=== PATIENT | female | born 2000 | race Caucasian/White ===

== ENCOUNTER → 2023-11-24 | Outpatient (CLI) | payer SELFPAY ==
[2023-11-24 15:11] LABS: Absolute Lymphocyte Count 2.09 X10^3/uL (0.83-4.51); Absolute Neutrophil Count 10.2 X10^3/uL (2.0-7.7); Basophil# 0.08 X10^3/uL; Basophil% 0.6 % (0-1); Eosinophil# 0.06 X10^3/uL; Eosinophils% 0.4 % (0-5); Hematocrit 42.5 % (37-47); Hemoglobin 13.8 g/dL (12.0-15.0); Lymphocyte # 2.09 X10^3/ul (0.83-4.51); Lymphocyte % 15.7 % (19-41); Mean Corp Hgb Conc 32.5 g/dL (32-36); Mean Corpuscular Hgb 28.5 pg (27.0-32.0); Mean Corpuscular Volume 87.6 fL (81-99); Mean Platelet Vol. 10.1 fl (6.2-12.0); Monocyte# 0.92 X10^3/uL; Monocyte% 6.9 % (0-10); NRBC Flagged by Analyzer 0 % (0-5); Neutrophil # 10.16 X10^3/uL (2.7-7.7); Neutrophil % 76.1 % (47-70); Platelet Count 311 K/mm3 (150-450); RBC Distribution Width CV 12.2 % (11.6-14.6); RBC Distribution Width SD 39.4 fl (35.1-43.9); Red Blood Count 4.85 M/mm3 (4.2-5.4); White Blood Count 13.4 K/mm3 (4.4-11.0)
[2023-11-24 16:19] LABS: HIV - WCH Non-Reactive (Nonreactive); Hepatitis B Surface Antigen Non-Reactive (Nonreactive); Hepatitis C Antibody Non-Reactive (Nonreactive); Rubella IgG Reactive (Nonreactive); Syphilis Antibodies Non-reactive
[2023-11-29 00:07] LABS: Chlamydia By Nucleic Acid AMP Negative (Negative); Gonococcus By Nucleic Acid AMP Negative (Negative)
[2023-11-30 16:38] LABS: HPV Reflexed? NOT INDICATED
== END | disposition home or self-care (01) ==
PROVIDERS: PCP Family Medicine; Referring Provider Advanced Practice Midwife; Visit Provider Advanced Practice Midwife
DX: Z34.90 Encounter for supervision of normal pregnancy, unspecified, unspecified trimester (principal)
CPT/HCPCS: 36415; 85025; 86703; 86762; 86780; 86803; 86850; 86900; 86901; 87086; 87340; 87491; 87591; 88175; G0145

== ENCOUNTER → 2024-02-07 | Outpatient (CLI) | payer SELFPAY ==
--- NOTE | 2024-02-07 15:25 | US_ITS ---
INDICATION: anatomy EXAMINATION: Ultrasound US OB Complete W/ Detail single or first gestation TECHNIQUE: Transabdominal and transvaginal (for optimal evaluation of the fetus) pelvic ultrasound was performed. Grayscale, spectral waveform, and color flow Doppler evaluation of the adnexa. COMPARISON: None. LMP: Unknown. Beta-hCG: Unknown. Provided EGA: 19 weeks 2 days FINDINGS: INTRAUTERINE GESTATION(s): Single. ESTIMATED GESTATIONAL AGE: 19 weeks 3 days ESTIMATED DUE DATE (ASAF): 06/30/2024 HEART MOTION is 153 bpm. AMNIOTIC FLUID VOLUME: Qualitatively normal. ESTIMATED WEIGHT: 283 g or 0 lbs. 10 oz. Percentile 44th%. BIOPHYSICAL PROFILE (BPP): Not assessed. PRESENTATION: Cephalic PLACENTA: Posterior. Placenta is low-lying with tip 1.1 cm from the internal cervical loss. CERVIX: The cervix is closed. 4.3 cm cervical length. Demonstrated anatomy without gross anomaly. IMPRESSION: Single live intrauterine of 19 weeks 3 days. Unremarkable demonstrated anatomy. Low-lying placenta. Recommend reevaluation late in second trimester. Electronically Signed: Ashvin Early MD at 18:23 EDT Reading Location ID and State: [address] [place] [address] Tel , Service support , INDICATION: anatomy EXAMINATION: Ultrasound US OB Complete W/ Detail single or first gestation TECHNIQUE: Transabdominal and transvaginal (for optimal evaluation of the fetus) pelvic ultrasound was performed. Grayscale, spectral waveform, and color flow Doppler evaluation of the adnexa. COMPARISON: None. LMP: Unknown. Beta-hCG: Unknown. Provided EGA: 19 weeks 2 days FINDINGS: INTRAUTERINE GESTATION(s): Single. ESTIMATED GESTATIONAL AGE: 19 weeks 3 days ESTIMATED DUE DATE (ASAF): 06/30/2024 HEART MOTION is 153 bpm. AMNIOTIC FLUID VOLUME: Qualitatively normal. ESTIMATED WEIGHT: 283 g or 0 lbs. 10 oz. Percentile 44th%. BIOPHYSICAL PROFILE (BPP): Not assessed. PRESENTATION: Cephalic PLACENTA: Posterior. Placenta is low-lying with tip 1.1 cm from the internal cervical loss. CERVIX: The cervix is closed. 4.3 cm cervical length. Demonstrated anatomy without gross anomaly. US/OB Anatomy w/ Transvaginal IMPRESSION: Single live intrauterine of 19 weeks 3 days. Unremarkable demonstrated anatomy. Low-lying placenta. Recommend reevaluation late in second trimester. Electronically Signed: Ashvin Early MD at 18:23 EDT ,
== END | disposition home or self-care (01) ==
LOC: US 15:23
PROVIDERS: Referring Provider Obstetrics & Gynecology; Visit Provider Obstetrics & Gynecology
DX: Z34.90 Encounter for supervision of normal pregnancy, unspecified, unspecified trimester (principal); Z3A.00 Weeks of gestation of pregnancy not specified
CPT/HCPCS: 76805; 76817

== ENCOUNTER → 2024-04-11 | Outpatient (CLI) | payer SELFPAY ==
[2024-04-11 11:32] LABS: Absolute Lymphocyte Count 2.29 X10^3/uL (0.83-4.51); Absolute Neutrophil Count 10.1 X10^3/uL (2.0-7.7); Basophil# 0.07 X10^3/uL; Basophil% 0.5 % (0-1); Eosinophil# 0.07 X10^3/uL; Eosinophils% 0.5 % (0-5); Hematocrit 40.8 % (37-47); Hemoglobin 13.2 g/dL (12.0-15.0); Lymphocyte # 2.29 X10^3/ul (0.83-4.51); Lymphocyte % 16.8 % (19-41); Mean Corp Hgb Conc 32.4 g/dL (32-36); Mean Corpuscular Hgb 29.5 pg (27.0-32.0); Mean Corpuscular Volume 91.1 fL (81-99); Monocyte# 0.95 X10^3/uL; Monocyte% 6.9 % (0-10); NRBC Flagged by Analyzer 0 % (0-5); Neutrophil # 10.09 X10^3/uL (2.7-7.7); Neutrophil % 73.8 % (47-70); Platelet Count 239 K/mm3 (150-450); RBC Distribution Width CV 12.8 % (11.6-14.6); RBC Distribution Width SD 41.8 fl (35.1-43.9); Red Blood Count 4.48 M/mm3 (4.2-5.4); White Blood Count 13.7 K/mm3 (4.4-11.0)
[2024-04-11 11:57] LABS: Glucose Challenge Gest 1H 50g 123 mg/dL (70-140)
--- NOTE | 2024-04-11 12:09 | US_ITS ---
EXAM: US SECOND OR THIRD TRIMESTER , TRANSABDOMINAL AND TRANSVAGINAL CLINICAL INDICATION: placenta location-follow up TECHNIQUE: Transabdominal and endovaginal obstetrical ultrasound of the maternal pelvis and a second or third trimester with image documentation. Endovaginal imaging was used for better evaluation of the fetus and adnexa. COMPARISON: No relevant prior studies available. FINDINGS: FETUS: Single viable IUP. HEART RATE: cardiac activity is identified with heart rate of 145 bpm. PRESENTATION: Cephalic presentation. PLACENTA: Posterior placenta with inferior margin, 1.3 cm from the internal cervical os. No placenta previa. No abruption. AMNIOTIC FLUID: Amniotic fluid volume is 12.8 cm with maximal vertical pocket of 4.4 cm. ANATOMY: Intracranial/face anatomy not seen. Spinal anatomy not seen. Abdominal anatomy not seen. Extremities not seen. Four-chamber heart not seen. Umbilical cord not seen. BIOMETRICS GESTATIONAL AGE: Gestational age is 28 weeks, 4 days. ASAF: 06/30/2024. EFW: Estimated weight: 1294 g (53%). BPD: 6.91 cm. HC: 26.33 cm. AC: 24.89 cm. FL: 5.42 cm. MATERNAL: UTERUS: No significant abnormality. No myometrial mass. CERVIX: The internal cervical os is closed. The cervix measures 4.3 cm. ADNEXA: No significant abnormality. No adnexal masses. FREE FLUID: None. IMPRESSION: Low-lying placenta, 1.3 cm from the internal cervical os. Otherwise, viable IUP. Electronically Signed: Alejandro Carson DO at 20:27 EDT , EXAM: US SECOND OR THIRD TRIMESTER , TRANSABDOMINAL AND TRANSVAGINAL CLINICAL INDICATION: placenta location-follow up TECHNIQUE: Transabdominal and endovaginal obstetrical ultrasound of the maternal pelvis and a second or third trimester with image documentation. Endovaginal imaging was used for better evaluation of the fetus and adnexa. COMPARISON: No relevant prior studies available. FINDINGS: FETUS: Single viable IUP. HEART RATE: cardiac activity is identified with heart rate of 145 bpm. PRESENTATION: Cephalic presentation. PLACENTA: Posterior placenta with inferior margin, 1.3 cm from the internal cervical os. No placenta previa. No abruption. AMNIOTIC FLUID: Amniotic fluid volume is 12.8 cm with maximal vertical pocket of 4.4 cm. ANATOMY: Intracranial/face anatomy not seen. Spinal anatomy not seen. Abdominal anatomy not seen. Extremities not seen. Four-chamber heart not seen. Umbilical cord not seen. BIOMETRICS GESTATIONAL AGE: Gestational age is 28 weeks, 4 days. ASAF: 06/30/2024. EFW: Estimated weight: 1294 g (53%). BPD: 6.91 cm. HC: 26.33 cm. AC: 24.89 cm. FL: 5.42 cm. MATERNAL: UTERUS: No significant abnormality. No myometrial mass. CERVIX: The internal cervical os is closed. The cervix measures 4.3 cm. ADNEXA: No significant abnormality. No adnexal masses. FREE FLUID: None. US/OB Limited With Biometrics IMPRESSION: Low-lying placenta, 1.3 cm from the internal cervical os. Otherwise, viable IUP. Electronically Signed: Alejandro Carson DO at 20:28 EDT ,
[2024-04-11 12:28] LABS: HIV - WCH Non-Reactive (Nonreactive); Syphilis Antibodies Non-reactive
== END | disposition home or self-care (01) ==
LOC: US 11:11
PROVIDERS: Referring Provider Advanced Practice Midwife; Visit Provider Advanced Practice Midwife
DX: O44.42 Low lying placenta NOS or without hemorrhage, second trimester (principal); Z3A.00 Weeks of gestation of pregnancy not specified; Z13.1 Encounter for screening for diabetes mellitus
CPT/HCPCS: 36415; 76816; 76817; 82950; 85025; 86703; 86780

== ENCOUNTER → 2024-05-18 | Outpatient (CLI) | payer SELFPAY ==
--- NOTE | 2024-05-18 13:46 | US_ITS ---
EXAM: US SECOND OR THIRD TRIMESTER , TRANSABDOMINAL CLINICAL INDICATION: wellbeing -- low lying placenta TECHNIQUE: Transabdominal obstetrical ultrasound of the maternal pelvis and a second or third trimester with image documentation. COMPARISON: April 11, 2024. The inferior tip of the posterior placenta was measured at 1.3 cm superior to the internal os on transvaginal exam on the previous study. FINDINGS: FETUS: HEART RATE: 137 bpm. PRESENTATION: Cephalic. PLACENTA: Grade 3, posterior, low lying. The inferior tip of the posterior placenta is 1.7-1.8 cm from the internal cervical os as measured on transvaginal exam, mildly improved. A full survey was not performed. AMNIOTIC FLUID: Unremarkable. 4 quadrant MICHELLE 15.7 cm, 59th percentile. ANATOMY: Profile, coronal view of the face demonstrated. BIOMETRICS GESTATIONAL AGE: 33 weeks 3 days. ASAF: July 03, 2024. EFW: 2245g +/- 337 g, 41st percentile. BPD: 33 weeks 4 days. HC: 33 weeks 5 days. AC: 33 weeks 4 days. FL: 33 weeks 3 days. MATERNAL: UTERUS: Unremarkable. No myometrial mass. CERVIX: Unremarkable as visualized. The cervix is closed. 4.0 cm in length on limited transvaginal exam. ADNEXA: Unremarkable. No adnexal masses. FREE FLUID: None. RATIOS: All standard ratios are within normal limits. US/OB Limited With Biometrics IMPRESSION: Single live intrauterine . Low-lying placenta, now slightly increased in distance from the internal os compared to April 11, 2024. No acute complications of . Electronically Signed: Catalina Ugarte MD at 21:26 EST ,
== END | disposition home or self-care (01) ==
LOC: US 13:45
PROVIDERS: Referring Provider Nurse Practitioner Women's Health; Visit Provider Nurse Practitioner Women's Health
DX: O44.42 Low lying placenta NOS or without hemorrhage, second trimester (principal); Z3A.00 Weeks of gestation of pregnancy not specified
CPT/HCPCS: 76816; 76817

== ENCOUNTER 2024-06-06 10:35 | Outpatient (CLI) | payer SELFPAY ==
[2024-06-06] VITALS (7 sets, daily range): BP systolic 140–154; BP diastolic 80–96; PULSE 85–90; RESP 16; TEMP 37.3; O2SAT 97; BMI 35.6
[2024-06-06 11:08] LABS: Hematocrit 41.7 % (37-47); Hemoglobin 13.8 g/dL (12.0-15.0); Mean Corp Hgb Conc 33.1 g/dL (32-36); Mean Corpuscular Hgb 29.3 pg (27.0-32.0); Mean Corpuscular Volume 88.5 fL (81-99); Mean Platelet Vol. 11.4 fl (6.2-12.0); Platelet Count 208 K/mm3 (150-450); RBC Distribution Width CV 12.9 % (11.6-14.6); RBC Distribution Width SD 42.1 fl (35.1-43.9); Red Blood Count 4.71 M/mm3 (4.2-5.4); White Blood Count 10.3 K/mm3 (4.4-11.0)
[2024-06-06 11:15] LABS: Protein, Urine (Random) 231.3 mg/dL (<11.9); Protein:Creat Ratio 1850 mg/g CRE (0-200)
[2024-06-06 11:36] LABS: AST(SGOT) 28 U/L (15-37); Alanine Aminotransfer ALT/SGPT 38 U/L (13-56); Creatinine, Serum 0.85 mg/dL (0.55-1.02); EST Glomerular Filtration Rate 86 mL/min (>60); Est Glom Filt Rate - Afr Amer 104 mL/min (>60); Uric Acid 8.6 mg/dL (2.6-6.0)
--- NOTE | 2024-06-06 11:48 | US_ITS ---
STUDY: SECOND AND THIRD TRIMESTER OBSTETRICAL ULTRASOUND - LIMITED REASON FOR EXAM: Female, 23 years old MICHELLE LMP: September 25, 2023. PRIOR ULTRASOUND: Comparison is made with prior study dated May 18, 2024. TECHNIQUE: Transabdominal and Transvaginal TECHNICAL QUALITY: Adequate. FINDINGS: There is a single intrauterine fetus. The fetus is in a cephalic presentation. There is demonstrated cardiac activity with a heart rate of 140 bpm. There is a normal amniotic fluid volume. The largest amniotic fluid pocket measures 4.5 cm. The amniotic fluid index (MICHELLE) is 12.9 cm. The placenta is posterior in location and is not low lying. The tip of the placenta is at 3.6 cm to 4 cm from the cervical os. There are Grade 3 placental changes. BIOMETRY: Age by LMP: 36 weeks, 3 days. ASAF by LMP: . US/OB Limited (No Biometrics) IMPRESSION: Posterior placenta. The tip of the placenta is at 3.6 cm to 4 cm from the cervical os. Normal amniotic fluid. Electronically Signed: Sergei Gant MD at 13:13 EST ,
--- NOTE | 2024-06-06 12:37 | NURSING ---
pt scheduled for induction at 36 on TuesdayJune 10 at 7pm
--- NOTE | 2024-06-13 08:42 | OB.TRI.PN_ITS ---
Progress Notes Date of Service: 06/06/24 Progress Note: Patient presents for triage evaluation secondary to elevated bps FHT: 140 Moderate variability reactive no decelerations category I tracing [place]: no regular Contractions Assessment and plan: preeclampsia Reactive NST, reassuring maternal and status patient discharged to home to follow-up as scheduled, for steroid shot. See problem list details for additional plan information. Laboratory Studies: Laboratory Tests 06/06/24 06/06/24 Range/Units 10:55 10:49 WBC 10.3 (4.4-11.0) K/mm3 RBC 4.71 (4.2-5.4) M/mm3 Hgb 13.8 (12.0-15.0) g/dL Hct 41.7 (37-47) % MCV 88.5 (81-99) fL MCH 29.3 (27.0-32.0) pg MCHC 33.1 (32-36) g/dL RDW Std Deviation 42.1 (35.1-43.9) fl RDW Coeff of Zain 12.9 (11.6-14.6) % Plt Count 208 (150-450) K/mm3 MPV 11.4 (6.2-12.0) fl Creatinine 0.85 (0.55-1.02) mg/dL Estim Creat Clear Calc 117.80 ml/min Est GFR (MDRD) Af Amer 104 (>60) mL/min Est GFR (MDRD) Non-Af 86 (>60) mL/min Uric Acid 8.6 H (2.6-6.0) mg/dL AST 28 (15-37) U/L ALT 38 (13-56) U/L U Random Total Protein 231.3 H (<11.9) mg/dL Urine Creatinine 125.00 (NO RANGE EST.) mg/dL Protein/Creatinin Ratio 1850 H (0-200) mg/g CRE Charges/Coding Procedures Urinary/Genital [id number]: 50080-81 non-stress test Interp
== END 2024-06-06 12:32 | disposition home or self-care (01) ==
LOC: WPOUT 10:36 → WP 10:36
PROVIDERS: Referring Provider Obstetrics & Gynecology; Visit Provider Obstetrics & Gynecology
DX: O14.93 Unspecified pre-eclampsia, third trimester (principal); Z3A.36 36 weeks gestation of pregnancy
CPT/HCPCS: 36415; 59025; 59050; 76815; 82565; 82570; 84156; 84450; 84460; 84550; 85027; 87081; 99221; G0378

== ENCOUNTER 2024-06-08 10:25 | Outpatient (CLI) | payer SELFPAY ==
[2024-06-08] VITALS (12 sets, daily range): BP systolic 126–148; BP diastolic 66–90; PULSE 74–91; RESP 15–16; TEMP 36.7; BMI 35.3
[2024-06-08 11:45] LABS: Hematocrit 40.8 % (37-47); Mean Corp Hgb Conc 34.3 g/dL (32-36); Mean Corpuscular Hgb 29.9 pg (27.0-32.0); Mean Corpuscular Volume 87.2 fL (81-99); Mean Platelet Vol. 11.4 fl (6.2-12.0); Platelet Count 219 K/mm3 (150-450); RBC Distribution Width CV 12.9 % (11.6-14.6); RBC Distribution Width SD 41.1 fl (35.1-43.9); Red Blood Count 4.68 M/mm3 (4.2-5.4); White Blood Count 10.2 K/mm3 (4.4-11.0)
[2024-06-08 11:55] LABS: Protein, Urine (Random) 198.3 mg/dL (<11.9); Protein:Creat Ratio 2269 mg/g CRE (0-200)
[2024-06-08 12:13] LABS: AST(SGOT) 35 U/L (15-37); Alanine Aminotransfer ALT/SGPT 50 U/L (13-56); Creatinine, Serum 0.81 mg/dL (0.55-1.02); EST Glomerular Filtration Rate 91 mL/min (>60); Est Glom Filt Rate - Afr Amer 110 mL/min (>60); Estimated Creatinine Clearance 122.95 ml/min; Uric Acid 8.8 mg/dL (2.6-6.0)
[2024-06-08] MEDS: Betamethasone/Betamethasone 30 MG/5 ML Vial 12 MG IM (14:15)
--- NOTE | 2024-06-21 07:14 | OB.TRI.PN ---
Progress Notes Date of Service: 06/08/24 Progress Note: Patient presents for triage evaluation secondary to elevated bp FHT: 130 Moderate variability reactive no decelerations category I tracing [place]: no regular Contractions Assessment and plan: preeclampsia labs reviewed Reactive NST, reassuring maternal and status patient discharged to home to follow-up as scheduled. See problem list details for additional plan information. Laboratory Studies: Laboratory Tests 06/08/24 06/08/24 Range/Units 11:43 11:35 WBC 10.2 (4.4-11.0) K/mm3 RBC 4.68 (4.2-5.4) M/mm3 Hgb 14.0 (12.0-15.0) g/dL Hct 40.8 (37-47) % MCV 87.2 (81-99) fL MCH 29.9 (27.0-32.0) pg MCHC 34.3 (32-36) g/dL RDW Std Deviation 41.1 (35.1-43.9) fl RDW Coeff of Zain 12.9 (11.6-14.6) % Plt Count 219 (150-450) K/mm3 MPV 11.4 (6.2-12.0) fl Creatinine 0.81 (0.55-1.02) mg/dL Estim Creat Clear Calc 122.95 ml/min Est GFR (MDRD) Af Amer 110 (>60) mL/min Est GFR (MDRD) Non-Af 91 (>60) mL/min Uric Acid 8.8 H (2.6-6.0) mg/dL AST 35 (15-37) U/L ALT 50 (13-56) U/L U Random Total Protein 198.3 H (<11.9) mg/dL Urine Creatinine 87.40 (NO RANGE EST.) mg/dL Protein/Creatinin Ratio 2269 H (0-200) mg/g CRE Charges/Coding Procedures Urinary/Genital [id number]: [id number] non-stress test Interp
== END 2024-06-08 14:18 | disposition home or self-care (01) ==
LOC: WPOUT 10:40 → WP 10:41
PROVIDERS: Referring Provider Advanced Practice Midwife; Visit Provider Advanced Practice Midwife
DX: O99.891 Other specified diseases and conditions complicating pregnancy (principal); R03.0 Elevated blood-pressure reading, without diagnosis of hypertension; Z3A.00 Weeks of gestation of pregnancy not specified
CPT/HCPCS: 36415; 59025; 59050; 82565; 82570; 84156; 84450; 84460; 84550; 85027; 96372; 99221; G0378; J0702

== ENCOUNTER 2024-06-09 14:00 | Outpatient (CLI) | payer SELFPAY ==
[2024-06-09] MEDS: Betamethasone/Betamethasone 30 MG/5 ML Vial 12 MG IM (14:14)
[2024-06-09 14:21] VITALS: BP 142/67; PULSE 81
--- NOTE | 2024-06-13 08:58 | OB.TRI.PN ---
Progress Notes Date of Service: 06/09/24 Progress Note: celestone given for prematruity 36 weeks preeclampsia Assessment & Plan (1) Pre-eclampsia affecting , antepartum: COMMENT: severe- give magnesium (2) : QUALIFIERS: Weeks of gestation: 36 weeks Qualified Code(s): Z3A.36 - 36 weeks gestation of COMMENT: declined ntd, genetic/carrier testing, nl 1hr GCT. nl anatomy
== END 2024-06-09 14:25 | disposition home or self-care (01) ==
LOC: WPOUT 14:03 → WP 14:03
PROVIDERS: Visit Provider Obstetrics & Gynecology
DX: O14.13 Severe pre-eclampsia, third trimester (principal); Z3A.36 36 weeks gestation of pregnancy
CPT/HCPCS: 96372; 99221; G0378; J0702

== ENCOUNTER 2024-06-10 07:20 | Inpatient (IN) | payer SELFPAY ==
[2024-06-10] VITALS (197 sets, daily range): BP systolic 135–182; BP diastolic 58–100; PULSE 71–125; RESP 16–18; TEMP 36.1–37.3; O2SAT 80–100; BMI 35.3
[2024-06-10 08:22] LABS: Absolute Lymphocyte Count 2.04 X10^3/uL (0.83-4.51); Basophil# 0.03 X10^3/uL; Basophil% 0.2 % (0-1); Hematocrit 39.7 % (37-47); Hemoglobin 13.2 g/dL (12.0-15.0); Lymphocyte # 2.04 X10^3/ul (0.83-4.51); Lymphocyte % 12.4 % (19-41); Mean Corp Hgb Conc 33.2 g/dL (32-36); Mean Corpuscular Hgb 29.5 pg (27.0-32.0); Mean Corpuscular Volume 88.8 fL (81-99); Mean Platelet Vol. 12.1 fl (6.2-12.0); Monocyte# 1.14 X10^3/uL; Monocyte% 6.9 % (0-10); NRBC Flagged by Analyzer 0 % (0-5); Neutrophil # 12.98 X10^3/uL (2.7-7.7); Neutrophil % 78.7 % (47-70); Platelet Count 252 K/mm3 (150-450); RBC Distribution Width CV 12.7 % (11.6-14.6); RBC Distribution Width SD 41.5 fl (35.1-43.9); Red Blood Count 4.47 M/mm3 (4.2-5.4); White Blood Count 16.5 K/mm3 (4.4-11.0)
[2024-06-10] MEDS: miSOPROStol 25 MCG TABLET VAGINAL ×2 (08:38→12:31)
[2024-06-10] MEDS: Lactated Ringers 1,000 ML 50 ML IV (08:44)
[2024-06-10 08:51] LABS: ALB/GLOB Ratio 0.8 RATIO (0.9-2.4); AST(SGOT) 53 U/L (15-37); Alanine Aminotransfer ALT/SGPT 92 U/L (13-56); Albumin, Serum 2.8 g/dL (3.2-5.0); Alkaline Phosphatase 154 U/L (45-117); Anion Gap 10 (5-15); BUN 29 mg/dL (7-18); BUN/Creat Ratio 31.7 RATIO (10-20); Chloride 108 mmol/L (98-107); Creatinine, Serum 0.92 mg/dL (0.55-1.02); EST Glomerular Filtration Rate 80 mL/min (>60); Est Glom Filt Rate - Afr Amer 96 mL/min (>60); Estimated Creatinine Clearance 108.25 ml/min; Globulin 3.5 g/dL (2.2-4.2); Glucose 99 mg/dL (74-106); Potassium 4.2 mmol/L (3.5-5.1); Protein, Total 6.3 g/dL (6.4-8.2); Sodium Level 139 mmol/L (136-145)
[2024-06-10 09:06] LABS: Syphilis Antibodies Non-reactive
[2024-06-10] MEDS: Magnesium Sulfate 4gm/100mL 4 GM/100 ML IV.SOLN. IV (10:00)
[2024-06-10] MEDS: Magnesium Sulfate 20 GM/500 ML BAG IV ×2 (10:15→20:00)
[2024-06-10 14:04] LABS: ROM Internal Control Test YES-OK TO RESULT pt. (Internal QC)
[2024-06-10 14:05] LABS: ROM Patient Test POSITIVE (Negative); Record Kit Lot#, ROM+ K1972
[2024-06-10 20:27] LABS: Absolute Lymphocyte Count 2.46 X10^3/uL (0.83-4.51); Absolute Neutrophil Count 15.7 X10^3/uL (2.0-7.7); Basophil# 0.07 X10^3/uL; Basophil% 0.3 % (0-1); Eosinophil# 0.01 X10^3/uL; Hematocrit 42.4 % (37-47); Hemoglobin 14.2 g/dL (12.0-15.0); Lymphocyte # 2.46 X10^3/ul (0.83-4.51); Lymphocyte % 12.2 % (19-41); Mean Corp Hgb Conc 33.5 g/dL (32-36); Mean Corpuscular Hgb 29.8 pg (27.0-32.0); Mean Corpuscular Volume 88.9 fL (81-99); Mean Platelet Vol. 11.4 fl (6.2-12.0); Monocyte# 1.63 X10^3/uL; Monocyte% 8.1 % (0-10); NRBC Flagged by Analyzer 0 % (0-5); Neutrophil # 15.68 X10^3/uL (2.7-7.7); Neutrophil % 77.9 % (47-70); POSITIVE DIFFERENTIAL YES; Platelet Count 292 K/mm3 (150-450); RBC Distribution Width CV 13.1 % (11.6-14.6); RBC Distribution Width SD 42.3 fl (35.1-43.9); Red Blood Count 4.77 M/mm3 (4.2-5.4); White Blood Count 20.2 K/mm3 (4.4-11.0)
[2024-06-10 20:32] LABS: Differential Indicated SCAN CRITERIA MET
[2024-06-10 20:49] LABS: ALB/GLOB Ratio 0.9 RATIO (0.9-2.4); AST(SGOT) 101 U/L (15-37); Alanine Aminotransfer ALT/SGPT 175 U/L (13-56); Albumin, Serum 3.2 g/dL (3.2-5.0); Alkaline Phosphatase 177 U/L (45-117); Anion Gap 9 (5-15); BUN 25 mg/dL (7-18); BUN/Creat Ratio 25.4 RATIO (10-20); Calcium,Total 8.1 mg/dL (8.5-10.1); Chloride 105 mmol/L (98-107); Creatinine, Serum 0.99 mg/dL (0.55-1.02); EST Glomerular Filtration Rate 73 mL/min (>60); Est Glom Filt Rate - Afr Amer 88 mL/min (>60); Estimated Creatinine Clearance 100.59 ml/min; Globulin 3.6 g/dL (2.2-4.2); Glucose 108 mg/dL (74-106); Potassium 3.8 mmol/L (3.5-5.1); Protein, Total 6.8 g/dL (6.4-8.2); Sodium Level 135 mmol/L (136-145)
[2024-06-10 21:03] LABS: Differential Comment SCANNED
[2024-06-10] MEDS: Oxytocin 15 Units/NS 250ml 15 UNITS/250 ML IV.SOLN 2 UNITS IV (21:16)
[2024-06-11] VITALS (224 sets, daily range): BP systolic 113–186; BP diastolic 60–99; PULSE 73–107; RESP 16–90; TEMP 36.2–36.9; O2SAT 90–100
[2024-06-11] MEDS: 0.9% Saline Lock 10 ML Syringe IV (01:39)
[2024-06-11] MEDS: Labetalol (Prefilled) 20 MG/4 ML Vial IV (01:39)
[2024-06-11] MEDS: LACTATED RINGERS 500 ML 999 ML IV (02:13)
[2024-06-11] MEDS: Lactated Ringers 1,000 ML 50 ML IV (02:41)
[2024-06-11 02:48] LABS: Absolute Lymphocyte Count 1.76 X10^3/uL (0.83-4.51); Absolute Neutrophil Count 19.4 X10^3/uL (2.0-7.7); Basophil# 0.07 X10^3/uL; Basophil% 0.3 % (0-1); Eosinophil# 0.03 X10^3/uL; Eosinophils% 0.1 % (0-5); Hematocrit 41.7 % (37-47); Hemoglobin 14.1 g/dL (12.0-15.0); Lymphocyte # 1.76 X10^3/ul (0.83-4.51); Lymphocyte % 7.5 % (19-41); Mean Corp Hgb Conc 33.8 g/dL (32-36); Mean Corpuscular Hgb 30.1 pg (27.0-32.0); Mean Corpuscular Volume 89.1 fL (81-99); Mean Platelet Vol. 11.2 fl (6.2-12.0); Monocyte# 1.79 X10^3/uL; Monocyte% 7.7 % (0-10); NRBC Flagged by Analyzer 0 % (0-5); Neutrophil # 19.39 X10^3/uL (2.7-7.7); POSITIVE DIFFERENTIAL YES; Platelet Count 257 K/mm3 (150-450); RBC Distribution Width CV 13.2 % (11.6-14.6); RBC Distribution Width SD 42.9 fl (35.1-43.9); Red Blood Count 4.68 M/mm3 (4.2-5.4); White Blood Count 23.4 K/mm3 (4.4-11.0)
[2024-06-11 02:50] LABS: Differential Indicated SCAN CRITERIA MET
[2024-06-11 03:04] LABS: ALB/GLOB Ratio 0.8 RATIO (0.9-2.4); AST(SGOT) 128 U/L (15-37); Alanine Aminotransfer ALT/SGPT 220 U/L (13-56); Albumin, Serum 2.9 g/dL (3.2-5.0); Alkaline Phosphatase 169 U/L (45-117); Anion Gap 12 (5-15); BUN 23 mg/dL (7-18); BUN/Creat Ratio 22.5 RATIO (10-20); Calcium,Total 7.3 mg/dL (8.5-10.1); Chloride 103 mmol/L (98-107); Creatinine, Serum 1.02 mg/dL (0.55-1.02); EST Glomerular Filtration Rate 70 mL/min (>60); Est Glom Filt Rate - Afr Amer 85 mL/min (>60); Estimated Creatinine Clearance 97.63 ml/min; Globulin 3.6 g/dL (2.2-4.2); Glucose 112 mg/dL (74-106); Potassium 3.8 mmol/L (3.5-5.1); Protein, Total 6.5 g/dL (6.4-8.2); Sodium Level 134 mmol/L (136-145)
[2024-06-11] MEDS: fentaNYL-bupivacaine (epidural) 100 ML BAG EPIDURAL (03:15)
[2024-06-11 03:31] LABS: Differential Comment SCANNED; Platelet Estimate ADEQUATE (ADEQ); Reactive Lymphocyte 1+
[2024-06-11] MEDS: Magnesium Sulfate 20 GM/500 ML BAG IV ×2 (06:30→16:34)
[2024-06-11] MEDS: Oxytocin 15 Units/NS 250ml 15 UNITS/250 ML IV.SOLN 83 UNITS IV (06:50)
[2024-06-11 10:17] LABS: Pathology Specimen OB SEE PATHOLOGY REPORT
[2024-06-11 13:05] LABS: Absolute Lymphocyte Count 2.42 X10^3/uL (0.83-4.51); Absolute Neutrophil Count 21.5 X10^3/uL (2.0-7.7); Basophil# 0.07 X10^3/uL; Basophil% 0.3 % (0-1); Eosinophil# 0.01 X10^3/uL; Hematocrit 39.3 % (37-47); Hemoglobin 13.4 g/dL (12.0-15.0); Lymphocyte # 2.42 X10^3/ul (0.83-4.51); Lymphocyte % 9.2 % (19-41); Mean Corp Hgb Conc 34.1 g/dL (32-36); Mean Corpuscular Volume 88.1 fL (81-99); Mean Platelet Vol. 11.3 fl (6.2-12.0); Monocyte% 7.3 % (0-10); NRBC Flagged by Analyzer 0.1 % (0-5); Neutrophil # 21.46 X10^3/uL (2.7-7.7); Neutrophil % 81.9 % (47-70); POSITIVE DIFFERENTIAL YES; Platelet Count 243 K/mm3 (150-450); RBC Distribution Width CV 13.2 % (11.6-14.6); RBC Distribution Width SD 42.4 fl (35.1-43.9); Red Blood Count 4.46 M/mm3 (4.2-5.4); White Blood Count 26.2 K/mm3 (4.4-11.0)
[2024-06-11 13:06] LABS: Differential Indicated SCAN CRITERIA MET
[2024-06-11 13:33] LABS: ALB/GLOB Ratio 0.7 RATIO (0.9-2.4); AST(SGOT) 98 U/L (15-37); Alanine Aminotransfer ALT/SGPT 193 U/L (13-56); Albumin, Serum 2.5 g/dL (3.2-5.0); Alkaline Phosphatase 148 U/L (45-117); Anion Gap 8 (5-15); BUN 23 mg/dL (7-18); BUN/Creat Ratio 22.3 RATIO (10-20); Calcium,Total 6.9 mg/dL (8.5-10.1); Chloride 104 mmol/L (98-107); Creatinine, Serum 1.03 mg/dL (0.55-1.02); EST Glomerular Filtration Rate 69 mL/min (>60); Est Glom Filt Rate - Afr Amer 84 mL/min (>60); Estimated Creatinine Clearance 96.69 ml/min; Globulin 3.6 g/dL (2.2-4.2); Glucose 136 mg/dL (74-106); Potassium 3.8 mmol/L (3.5-5.1); Protein, Total 6.1 g/dL (6.4-8.2); Sodium Level 134 mmol/L (136-145)
[2024-06-11 13:34] LABS: Differential Comment SCANNED; Platelet Estimate ADEQUATE (ADEQ)
[2024-06-11 13:35] LABS: Red Cell Morphology NORM C+C NORMAL (NORM C&C)
[2024-06-11] MEDS: Labetalol 100 MG Tablet PO (16:33)
[2024-06-12] VITALS (10 sets, daily range): BP systolic 112–128; BP diastolic 68–83; PULSE 73–93; RESP 16–18; TEMP 36.6–37.1; O2SAT 95–97
[2024-06-12] MEDS: Magnesium Sulfate 20 GM/500 ML BAG IV (02:12)
[2024-06-12 05:37] LABS: Absolute Lymphocyte Count 2.73 X10^3/uL (0.83-4.51); Absolute Neutrophil Count 13.7 X10^3/uL (2.0-7.7); Basophil# 0.05 X10^3/uL; Basophil% 0.3 % (0-1); Eosinophil# 0.04 X10^3/uL; Eosinophils% 0.2 % (0-5); Hematocrit 37.1 % (37-47); Hemoglobin 12.5 g/dL (12.0-15.0); Lymphocyte # 2.73 X10^3/ul (0.83-4.51); Lymphocyte % 14.9 % (19-41); Mean Corp Hgb Conc 33.7 g/dL (32-36); Mean Platelet Vol. 11.1 fl (6.2-12.0); Monocyte# 1.54 X10^3/uL; Monocyte% 8.4 % (0-10); NRBC Flagged by Analyzer 0 % (0-5); Neutrophil # 13.72 X10^3/uL (2.7-7.7); Neutrophil % 75.1 % (47-70); POSITIVE DIFFERENTIAL YES; Platelet Count 202 K/mm3 (150-450); RBC Distribution Width CV 13.4 % (11.6-14.6); RBC Distribution Width SD 43.5 fl (35.1-43.9); Red Blood Count 4.17 M/mm3 (4.2-5.4); White Blood Count 18.3 K/mm3 (4.4-11.0)
[2024-06-12 05:39] LABS: Differential Indicated SCAN CRITERIA MET
[2024-06-12] MEDS: Labetalol 100 MG Tablet PO ×2 (05:48→16:33)
[2024-06-12 05:56] LABS: ALB/GLOB Ratio 0.7 RATIO (0.9-2.4); AST(SGOT) 60 U/L (15-37); Alanine Aminotransfer ALT/SGPT 151 U/L (13-56); Albumin, Serum 2.3 g/dL (3.2-5.0); Alkaline Phosphatase 128 U/L (45-117); Anion Gap 6 (5-15); BUN 20 mg/dL (7-18); BUN/Creat Ratio 23.4 RATIO (10-20); Calcium,Total 6.2 mg/dL (8.5-10.1); Chloride 102 mmol/L (98-107); Creatinine, Serum 0.85 mg/dL (0.55-1.02); EST Glomerular Filtration Rate 86 mL/min (>60); Est Glom Filt Rate - Afr Amer 104 mL/min (>60); Estimated Creatinine Clearance 117.16 ml/min; Globulin 3.4 g/dL (2.2-4.2); Glucose 93 mg/dL (74-106); Protein, Total 5.7 g/dL (6.4-8.2); Sodium Level 135 mmol/L (136-145)
[2024-06-12 06:17] LABS: Differential Comment SCANNED; Platelet Estimate ADEQUATE (ADEQ); Red Cell Morphology NORM C+C NORMAL (NORM C&C)
[2024-06-12 08:56] LABS: Pathologist Review Reviewed
[2024-06-12 08:56] LABS: Pathologist Review Reviewed
[2024-06-12 13:12] LABS: Absolute Lymphocyte Count 2.54 X10^3/uL (0.83-4.51); Absolute Neutrophil Count 13.3 X10^3/uL (2.0-7.7); Basophil# 0.05 X10^3/uL; Basophil% 0.3 % (0-1); Eosinophil# 0.07 X10^3/uL; Eosinophils% 0.4 % (0-5); Hematocrit 36.7 % (37-47); Hemoglobin 12.2 g/dL (12.0-15.0); Lymphocyte # 2.54 X10^3/ul (0.83-4.51); Lymphocyte % 14.4 % (19-41); Mean Corp Hgb Conc 33.2 g/dL (32-36); Mean Corpuscular Volume 90.2 fL (81-99); Mean Platelet Vol. 11.3 fl (6.2-12.0); Monocyte# 1.48 X10^3/uL; Monocyte% 8.4 % (0-10); NRBC Flagged by Analyzer 0 % (0-5); Neutrophil # 13.32 X10^3/uL (2.7-7.7); Neutrophil % 75.7 % (47-70); Platelet Count 197 K/mm3 (150-450); RBC Distribution Width CV 13.7 % (11.6-14.6); RBC Distribution Width SD 44.5 fl (35.1-43.9); Red Blood Count 4.07 M/mm3 (4.2-5.4); White Blood Count 17.6 K/mm3 (4.4-11.0)
[2024-06-12 13:30] LABS: ALB/GLOB Ratio 0.7 RATIO (0.9-2.4); AST(SGOT) 58 U/L (15-37); Alanine Aminotransfer ALT/SGPT 145 U/L (13-56); Albumin, Serum 2.3 g/dL (3.2-5.0); Alkaline Phosphatase 129 U/L (45-117); Anion Gap 6 (5-15); BUN 22 mg/dL (7-18); Calcium,Total 6.1 mg/dL (8.5-10.1); Chloride 105 mmol/L (98-107); Creatinine, Serum 0.81 mg/dL (0.55-1.02); EST Glomerular Filtration Rate 91 mL/min (>60); Est Glom Filt Rate - Afr Amer 110 mL/min (>60); Estimated Creatinine Clearance 122.95 ml/min; Globulin 3.4 g/dL (2.2-4.2); Glucose 108 mg/dL (74-106); Potassium 4.2 mmol/L (3.5-5.1); Protein, Total 5.7 g/dL (6.4-8.2); Sodium Level 136 mmol/L (136-145)
[2024-06-12 15:12] LABS: Pathologist Review Reviewed
[2024-06-12 15:14] LABS: Pathologist Review Reviewed
[2024-06-13 02:30] VITALS: BP 128/70; PULSE 81; RESP 16; TEMP 36.6; O2SAT 98
[2024-06-13] MEDS: Labetalol 100 MG Tablet PO (04:48)
[2024-06-13 05:02] LABS: Hematocrit 36.5 % (37-47); Mean Corp Hgb Conc 32.9 g/dL (32-36); Mean Corpuscular Hgb 29.6 pg (27.0-32.0); Mean Corpuscular Volume 90.1 fL (81-99); Mean Platelet Vol. 10.6 fl (6.2-12.0); POSITIVE DIFFERENTIAL YES; Platelet Count 189 K/mm3 (150-450); RBC Distribution Width CV 13.4 % (11.6-14.6); RBC Distribution Width SD 44.1 fl (35.1-43.9); Red Blood Count 4.05 M/mm3 (4.2-5.4); White Blood Count 18.2 K/mm3 (4.4-11.0)
[2024-06-13 05:48] LABS: ALB/GLOB Ratio 0.7 RATIO (0.9-2.4); AST(SGOT) 41 U/L (15-37); Alanine Aminotransfer ALT/SGPT 120 U/L (13-56); Albumin, Serum 2.3 g/dL (3.2-5.0); Alkaline Phosphatase 117 U/L (45-117); Anion Gap 5 (5-15); BUN 18 mg/dL (7-18); BUN/Creat Ratio 24.2 RATIO (10-20); Calcium,Total 7.1 mg/dL (8.5-10.1); Chloride 105 mmol/L (98-107); Creatinine, Serum 0.74 mg/dL (0.55-1.02); EST Glomerular Filtration Rate 101 mL/min (>60); Est Glom Filt Rate - Afr Amer 122 mL/min (>60); Estimated Creatinine Clearance 134.58 ml/min; Globulin 3.5 g/dL (2.2-4.2); Glucose 86 mg/dL (74-106); Potassium 3.9 mmol/L (3.5-5.1); Protein, Total 5.8 g/dL (6.4-8.2); Sodium Level 138 mmol/L (136-145)
[2024-06-13 06:07] LABS: Differential Indicated MANUAL DIFF
[2024-06-13 06:10] LABS: Anisocytosis 2+; Eosinophil 1 % (0-5); Lymphocyte 14 % (19-41); Metamyelocyte 3 % (0-1); Monocyte 4 % (0-10); Myelocyte 1 % (0-0); Neutrophil-Band 3 % (0-5); Neutrophil-Segmented 74 % (47-70); Platelet Estimate ADEQUATE (ADEQ); Polychromasia 1+; Total Cells Counted 100 (MANUAL DIFF)
[2024-06-13 06:11] LABS: Macrocytosis 1+
[2024-06-13 06:12] LABS: Howell-Jolly Body RARE
[2024-06-13 06:20] LABS: Absolute Lymphocyte Count 2.54 X10^3/uL (0.83-4.51); Scan Smear per Review Criteria MANUAL DIFF
[2024-06-13 07:40] VITALS: BP 107/64; PULSE 74; RESP 16; TEMP 36.6; O2SAT 95
[2024-06-13 14:00] VITALS: BP 132/88; PULSE 95; RESP 16; TEMP 36.9; O2SAT 96
[2024-06-13 14:30] LABS: Pathologist Review Reviewed
== END 2024-06-13 15:00 | disposition home or self-care (01) | DRG 807 ==
PROVIDERS: Advanced Practice Midwife; Admitting Provider Obstetrics & Gynecology; Referring Provider Obstetrics & Gynecology; Visit Provider Obstetrics & Gynecology
DX: O14.14 Severe pre-eclampsia complicating childbirth (principal); Z37.0 Single live birth; O69.81X0 Labor and delivery complicated by cord around neck, without compression, not applicable or unspecified; O70.1 Second degree perineal laceration during delivery; Z3A.37 37 weeks gestation of pregnancy
CPT/HCPCS: 59025; 59050; 80053; 84112; 85025; 86780; 86850; 86900; 86901; 88307; 99221; J7120; A4216; G0378

== ENCOUNTER → 2024-07-26 | Outpatient (CLI) | payer SELFPAY ==
[2024-07-26 11:15] LABS: Absolute Lymphocyte Count 2.44 X10^3/uL (0.83-4.51); Basophil# 0.07 X10^3/uL; Basophil% 0.8 % (0-1); Eosinophil# 0.08 X10^3/uL; Eosinophils% 0.9 % (0-5); Hematocrit 48.3 % (37-47); Hemoglobin 15.6 g/dL (12.0-15.0); Lymphocyte # 2.44 X10^3/ul (0.83-4.51); Lymphocyte % 26.2 % (19-41); Mean Corp Hgb Conc 32.3 g/dL (32-36); Mean Corpuscular Hgb 29.2 pg (27.0-32.0); Mean Corpuscular Volume 90.3 fL (81-99); Mean Platelet Vol. 9.4 fl (6.2-12.0); Monocyte# 0.67 X10^3/uL; Monocyte% 7.2 % (0-10); NRBC Flagged by Analyzer 0 % (0-5); Neutrophil # 6.01 X10^3/uL (2.7-7.7); Neutrophil % 64.6 % (47-70); Platelet Count 294 K/mm3 (150-450); RBC Distribution Width CV 12.6 % (11.6-14.6); RBC Distribution Width SD 41.7 fl (35.1-43.9); Red Blood Count 5.35 M/mm3 (4.2-5.4); White Blood Count 9.3 K/mm3 (4.4-11.0)
[2024-07-26 11:40] LABS: AST(SGOT) 22 U/L (15-37); Alanine Aminotransfer ALT/SGPT 17 U/L (13-56); Albumin, Serum 3.9 g/dL (3.2-5.0); Alkaline Phosphatase 77 U/L (45-117); Anion Gap 7 (5-15); BUN 15 mg/dL (7-18); BUN/Creat Ratio 17.7 RATIO (10-20); Calcium,Total 9.7 mg/dL (8.5-10.1); Chloride 103 mmol/L (98-107); Creatinine, Serum 0.85 mg/dL (0.55-1.02); EST Glomerular Filtration Rate 87 mL/min (>60); Est Glom Filt Rate - Afr Amer 105 mL/min (>60); Glucose 85 mg/dL (74-106); Potassium 4.1 mmol/L (3.5-5.1); Protein, Total 7.9 g/dL (6.4-8.2); Sodium Level 139 mmol/L (136-145)
== END | disposition home or self-care (01) ==
LOC: BWCLAB 10:54
PROVIDERS: Referring Provider Nurse Practitioner Women's Health; Visit Provider Nurse Practitioner Women's Health
DX: O14.90 Unspecified pre-eclampsia, unspecified trimester (principal); Z3A.00 Weeks of gestation of pregnancy not specified
CPT/HCPCS: 36415; 80053; 85025

== ENCOUNTER → 2025-03-26 | Outpatient (CLI) | payer SELFPAY ==
--- NOTE | 2025-03-26 17:44 | US_ITS ---
PROCEDURE: PELVIC W/ TRANSVAGINAL REASON FOR EXAM: IRREG MENSES TECHNIQUE: Procedure Code: [id number] Modality: US Procedure: PELVIC W/ TRANSVAGINAL COMPARISON: None FINDINGS: LMP: March 20, 2025. Measurements: Uterus: 7.9 cm x 5.2 cm x 2.9 cm with a volume of 62.3 mL Endometrial Thickness: 6 mm. It is trilaminar. Right Ovary: 3.8 cm x 1.9 cm x 2.3 cm with a volume of 14.6 mL. Left Ovary: 3.3 cm x 2 cm x 1.8 cm with a volume of 14 mL. TRANSABDOMINAL: Uterus: Normal size, myometrial echotexture, and contour. Arcuate uterus. Endometrium: Unremarkable. Right ovary: Multiple small follicles. Left ovary: Multiple small follicles. Other: No large pelvic mass identified. Transvaginal sonography was performed to better visualize the endometrium. TRANSVAGINAL: Uterus: Anteverted. Arcuate uterus. Endometrium: Normal echotexture. Right ovary: Multiple small follicles. Left ovary: Multiple small follicles. Other adnexal findings: None. Cul-de-sac: No free intraperitoneal fluid identified. Tenderness: No tenderness US/Pelvic w/ Transvaginal IMPRESSION: NORMAL TRANSABDOMINAL AND TRANSVAGINAL PELVIC ULTRASOUND. Reading Location: [id number]
== END | disposition home or self-care (01) ==
LOC: US 17:42
PROVIDERS: Referring Provider Nurse Practitioner Women's Health; Visit Provider Nurse Practitioner Women's Health
DX: N92.6 Irregular menstruation, unspecified (principal)
CPT/HCPCS: 76830; 76856

== ENCOUNTER → 2025-06-18 | Outpatient (CLI) | payer SELFPAY ==
[2025-06-18 16:36] LABS: Hematocrit 40.9 % (37-47); Hemoglobin 13.5 g/dL (12.0-15.0); Immature Granulocytes Count 0.040 X10^3/uL (0.0-0.0); Mean Corp Hgb Conc 33.0 g/dL (32-36); Mean Corpuscular Volume 88.1 fL (81-99); Mean Platelet Vol. 10.3 fl (6.2-12.0); NRBC Flagged by Analyzer 0 % (0-5); Platelet Count 343 K/mm3 (150-450); RBC Distribution Width CV 12.9 % (11.6-14.6); RBC Distribution Width SD 41.8 fl (35.1-43.9); Red Blood Count 4.64 M/mm3 (4.2-5.4); White Blood Count 10.8 K/mm3 (4.4-11.0)
[2025-06-18 17:18] LABS: Creatinine, Urine (random) 107.00 mg/dL (28.00-217.00); Protein, Urine (Random) 9.8 mg/dL (0.0-12.0); Protein:Creat Ratio 92 mg/g CRE (0-200)
[2025-06-18 17:43] LABS: AST(SGOT) 17 U/L (<=31); Alanine Aminotransfer ALT/SGPT 19 U/L (<=34); Albumin, Serum 4.5 g/dL (3.5-5.0); Alkaline Phosphatase 56 U/L (35-104); Anion Gap 13 (5-15); BUN 10 mg/dL (4-19); BUN/Creat Ratio 16.9 RATIO (10-20); Calcium,Total 9.8 mg/dL (7.6-11.0); Carbon Dioxide 23.1 mmol/L (21.0-32.0); Chloride 101 mmol/L (98-108); Globulin 2.9 g/dL (2.2-4.2); Glucose 93 mg/dL (70-99); HIV Nonreactive (Nonreactive); Hepatitis B Surface Antigen Nonreactive (Nonreactive); Hepatitis C Antibody Nonreactive (Nonreactive); Potassium 3.9 mmol/L (3.3-5.1); Syphilis Antibodies Nonreactive (Nonreactive)
[2025-06-21 07:07] LABS: Chlamydia By Nucleic Acid AMP Negative (Negative); Gonococcus By Nucleic Acid AMP Negative (Negative)
== END | disposition home or self-care (01) ==
LOC: BWCLAB 14:25
PROVIDERS: Visit Provider Student in an Organized Health Care Education/Training Program
DX: O09.90 Supervision of high risk pregnancy, unspecified, unspecified trimester (principal); Z87.59 Personal history of other complications of pregnancy, childbirth and the puerperium; Z3A.00 Weeks of gestation of pregnancy not specified
CPT/HCPCS: 36415; 80053; 82570; 84156; 85025; 86703; 86762; 86780; 86803; 86850; 86900; 86901; 87077; 87086; 87088; 87186; 87340; 87491; 87591